=== PATIENT | male | born 1970 | race Caucasian/White ===

== ENCOUNTER 2017-11-03 19:34 | Emergency (ER) | payer OTHER ==
[2017-11-03] MEDS ORDERED: NS 0.9% 1000 ML* 1,000 ML IV ONE (21:08)
[2017-11-03 21:43] LABS: ABS Basophils 0 10^3/ul (0-0.2); ABS Eosinophils 0 10^3/ul (0-0.6); ABS Monocytes 0.7 10^3/ul (0-0.8); ABS Neutrophils 8.3 10^3/ul (1.5-7.7); ABS Nucleated RBC 0 10^3/ul; Eosinophil % 0.4 % (0-6); Hematocrit 39 % (42-52); Hemoglobin 13.8 g/dl (14.0-18.0); Lymphocyte % 10.1 % (25-47); Mean Corpuscular HGB Conc 35 g/dl (31-36); Mean Corpuscular Hemoglobin 31 pg (27-31); Mean Corpuscular Volume 88 fL (80-94); Mean Platelet Volume 9 um3 (7.4-10.4); Nucleated Red Blood Cells % 0; Platelet Count 182 10^3/ul (150-450); Red Blood Count 4.48 10^6/ul (4.0-5.4); Red Cell Distribution Width 13 % (10.5-15); White Blood Count 10.1 10^3/ul (3.5-10.8)
--- NOTE | 2017-11-03 21:55 | RAD ---
Indication: Shortness of breath. Single frontal view of the chest performed at 2125 hours was reviewed. No prior study is available for comparison. No mediastinal shift is noted. Heart is of normal size and configuration. Lung fontenot appear clear. IMPRESSION: NO ACTIVE CARDIOPULMONARY DISEASE IS NOTED.
[2017-11-03 22:00] LABS: EGFR Non-African American 76.2 (>60)
[2017-11-03 22:26] LABS: Urine Appearance Clear; Urine Blood Negative (Negative); Urine Color Yellow; Urine Ketones Negative (Negative); Urine Protein Negative (Negative); Urine Specific Gravity 1.018 (1.010-1.030); Urine Urobilinogen Negative (Negative)
[2017-11-03] MEDS ORDERED: LORazepam INJ* 2 MG/ML 1 ML VIAL IV PUSH ONE (22:30)
--- NOTE | 2017-11-03 23:04 | ED ---
Jesse Rivera Nilda, scribed for Neo Wolff MD on 11/03/17 at 2054 . Complex/Multi-Sys Presentation - HPI Summary HPI Summary: This patient is a 49 year old M presenting to [facility] with a chief complaint of acute tachycardia at 1500 today (resolved). The patient rates the pain 0/10 in severity. Patient reports fever, flushed in the face, and lightheadedness, but denies pain and chills. Symptoms aggravated and alleviated by nothing. Pt states he had flu 2 weeks ago and was treated with Tamiflu. Medications include Fluoxetine (Tx for depression, recent divorce) and generic Lipitor. - History Of Current Complaint Chief Complaint: EDGeneral Time Seen by Provider: 11/03/17 20:37 Hx Obtained From: Patient Onset/Duration: Sudden Onset, Lasting Hours, Resolved Severity Currently: None Location: Negative Aggravating Factor(s): nothing Alleviating Factor(s): nothing Associated Signs And Symptoms: Positive: Other - fever, tachycardia, flushed in the face, and lightheadedness, but denies pain and chills. Related History: Recent Illness - flu 2 weeks ago - Allergies/Home Medications Allergies/Adverse Reactions: Allergies Allergy/AdvReac Type Severity Reaction Status Date / Time Penicillins Allergy Rash Verified 11/03/17 20:40 Home Medications: Home Medications Atorvastatin* [Lipitor*] 10 mg PO DAILY 11/03/17 [History Confirmed 11/03/17] FLUoxetine CAP* [PROzac CAP*] 20 mg PO DAILY 11/03/17 [History Confirmed ] PMH/Surg Hx/FS Hx/Imm Hx Sensory History: Denies: Hx Legally Blind EENT History: Denies: Hx Deafness Psychiatric History: Reports: Hx Depression Infectious Disease History: No Infectious Disease History: Denies: Traveled Outside the [place] in Last 30 Days - Family History Known Family History: Positive: Hypertension - Social History Occupation: Employed Full-time Alcohol Use: Weekly Substance Use Type: Reports: None Smoking Status (MU): Never Smoked Tobacco Review of Systems Positive: Fever. Negative: Chills Positive: Other - tachycardia (resolved) Positive: Other - negative pain Positive: Other - "flushed in the face" Neurological: Other - lightheaded All Other Systems Reviewed And Are Negative: Yes Physical Exam - Summary Physical Exam Summary: VITAL SIGNS: Reviewed. GENERAL: Patient is a well-developed and nourished male who is lying comfortable in the stretcher. Patient is not in any acute respiratory distress. HEAD AND FACE: No signs of trauma. No ecchymosis, hematomas or skull depressions. No sinus tenderness. EYES: PERRLA, EOMI x 2, No injected conjunctiva, no nystagmus. EARS: Hearing grossly intact. Ear canals and tympanic membranes are within normal limits. MOUTH: Oropharynx within normal limits. NECK: Supple, trachea is midline, no adenopathy, no JVD, no carotid bruit, no c- spine tenderness, neck with full ROM. CHEST: Symmetric, no tenderness at palpation LUNGS: Clear to auscultation bilaterally. No wheezing or crackles. CVS: Regular rate and rhythm, S1 and S2 present, no murmurs or gallops appreciated. ABDOMEN: Soft, non-tender. No signs of distention. No rebound no guarding, and no masses palpated. Bowel sounds are normal. EXTREMITIES: FROM in all major joints, no edema, no cyanosis or clubbing. NEURO: Alert and oriented x 3. No acute neurological deficits. Speech is normal and follows commands. SKIN: Dry and warm Triage Information Reviewed: Yes Vital Signs On Initial Exam: Initial Vitals Temp Pulse Resp BP Pulse Ox 98.4 F 83 16 143/69 100 11/03/17 19:48 11/03/17 19:48 11/03/17 19:48 11/03/17 19:48 11/03/17 19:48 Vital Signs Reviewed: Yes Diagnostics - Vital Signs Vital Signs Temp Pulse Resp BP Pulse Ox 11/03/17 19:48 98.4 F 83 16 143/69 100 - Laboratory Result Diagrams: 11/03/17 21:29 11/03/17 21:29 Lab Statement: Any lab studies that have been ordered have been reviewed, and results considered in the medical decision making process. - Radiology CXR Radiology Interpretation Completed By: Radiologist - CXR reveals no active cardiopulmonary disease is noted. Dr. Wolff has reviewed this report. - EKG 1950 Cardiac Rate: NL EKG Rhythm: Sinus Rhythm - 84 bpm EKG Interpretation: Normal axis. Normal interval. No ischemic changes Re-Evaluation - Re-Evaluation First Eval Re-Evaluation Time: 22:16 Comment: Pt is very anxious because cat 2 days ago. Pt thinks he will . Pt was reassured that labs and imaging were normal. Pt will be D/C home will follow up with PCP. Complex Multi-Symp Course/Dx Course Of Treatment: Pt is a 47 y/o M with Hx of HTN and Depression. Pt going through divorce. He came because he was flushed at work. Pt on exam is anxious. Blood and EKG are normal. Pt is concerned because his cat at home. Pt symptoms are most likely secondary to anxiety. Pt will be D/C, prescribed Xanax and advised to f/u with PCP. - Diagnoses Provider Diagnoses: Anxiety Discharge - Discharge Plan Condition: Stable Disposition: HOME Prescriptions: ALPRAZolam TAB* [Xanax TAB*] 0.5 mg PO BID PRN #10 tab MDD 2 PRN Reason: Anxiety ALPRAZolam TAB* [Xanax TAB*] 0.5 mg PO BID PRN #10 tab MDD 2 PRN Reason: Anxiety Patient Education Materials: Anxiety (ED) Referrals: Marycarmen Snyder MD [Primary Care Provider] - 3 Days Additional Instructions: RETURN TO THE EMERGENCY DEPARTMENT FOR CHANGING OR WORSENING SYMPTOMS. The documentation as recorded by the Jesse wu Nilda accurately reflects the service I personally performed and the decisions made by me, Neo Wolff MD.
[2017-11-04 00:24] VITALS: BP 132/78
== END 2017-11-04 00:22 | disposition home or self-care (01) ==
LOC: ED 19:34
DX: R50.9 Fever, unspecified (principal); R00.0 Tachycardia, unspecified; R42 Dizziness and giddiness; F41.9 Anxiety disorder, unspecified
CPT/HCPCS: 36415; 71045; 80053; 81003; 83735; 85025; 86140; 87502; 93005; 96360; 99283

== ENCOUNTER 2019-07-18 11:51 | Emergency (ER) | payer OTHER ==
--- OUTSIDE RECORDS SUMMARY | 2019-07-18 11:57 | XMS REPORT | Summary of Care ---
:1970 Author Organization [facility] Address [address] [place] [address] Care Team Providers Name Role Phone Marycarmen Snyder Primary Care Provider Reason for Visit Reason Comments Shoulder Pain Encounter Details Date Type Department Care Team Description 06/07/2019 Office Visit [facility] - Patt Arnett, Chronic right [place] Physical [facility] shoulder pain Therapy [address] (Primary Dx) [address] [place] [address] [address] [phone] [phone] Allergies Active Allergy Reactions Severity Noted Date Comments Penicillins Rash 11/29/2011 documented as of this encounter (statuses as of 06/07/2019) Medications Medication Sig Dispensed Refills Start Date End Date Status Multiple Take by mouth. 0 Active Vitamins-Minerals (MULTIVITAMIN MEN) Oral Tab [place]-3 Fatty Acids Take by mouth. 0 Active (FISH OIL) 1000 MG Oral Cap doxycycline Take 100 mg by 20 Tab 0 06/20/2018 Active (VIBRAMYCIN) 100 MG mouth TWICE Oral Tab DAILY. fluoxetine (PROZAC) 20 Take 1 Cap by 90 Cap 1 11/27/2018 Active MG Oral Cap mouth DAILY. atorvastatin (LIPITOR) take 1 tablet by 30 Tab 5 01/24/2019 Active 20 MG Oral mouth once daily TabIndications: Dyslipidemia atorvastatin (LIPITOR) Take 1 Tab by 90 Tab 0 02/26/2019 Active 40 MG Oral Tab mouth DAILY. documented as of this encounter (statuses as of 06/07/2019) Active Problems Problem Noted Date Anxiety and depression 01/20/2018 Depression 01/28/2017 Sprain of medial collateral ligament of right knee 09/18/2015 Right knee pain 09/16/2015 Dyslipidemia 12/23/2011 BMI 30.0-30.9,adult 12/23/2011 Overview: Weight loss through diet/exercise 2011 documented as of this encounter (statuses as of 06/07/2019) Immunizations Name Administration Dates Next Due Influenza (IM) Preservative Free 08/30/2017, 07/12/2011 Influenza (IM) W/Pres 08/13/2016 Influenza Vaccine Split 05/17/2018 TDAP Vaccine 11/29/2011 documented as of this encounter Social History Tobacco Use Types Packs/Day Years Used Date Never Smoker Smokeless Tobacco: Never Used Alcohol Use Drinks/Week oz/Week Comments Yes 4-6 Standard drinks or equivalent 4.0 - 6.0 Socially Sex Assigned at Date Recorded Not on file Job Start Date Occupation Industry Not on file Not on file Not on file Travel History Travel Start Travel End No recent travel history available. documented as of this encounter Last Filed Vital Signs Not on filedocumented in this encounter Progress Notes Patt Arnett, PT - 06/07/2019 8:30 AM EDT [facility] Treatment Note Outpatient Physical Therapy [facility] [address] [place] [phone] Treatment Number: 5 Referring Physician: Marycarmen Snyder Primary Diagnosis: ICD-9-CM ICD-10-CM 1. Chronic right shoulder pain 719.41 M25.511 338.29 G89.29 Time In: 08 Time Out: 0905 Total Session Minutes: 35 Pain at Start of Care: 10/08 Pain at End of Care: 09/07 Subjective Comments: Doing ok, improved mobility, back to hockey Interventions: Therapeutic Exercises (31890) Patient Education/Home Exercise Program: see exercises below Number of Exercises?: 7 Total Minutes (all Therapeutic Exercise): 10 Exercise #1 Exercise Name: open book Reason for Exercise: Flexibility Location/Body Area: Shoulder Sets/Reps: 10x5 sec Exercise #2 Exercise Name: Shoulder abduction slide ont able Reason for Exercise: Joint Mobility Location/Body Area: Shoulder Sets/Reps: 10 Exercise #3 Exercise Name: Door way pectoral strethc Reason for Exercise: Flexibility Location/Body Area: Shoulder Sets/Reps: 60 sec Exercise #4 Exercise Name: Foam roller pecs and lats Reason for Exercise: Flexibility Location/Body Area: Shoulder Exercise #5 Exercise Name: Shoulder extension, ER with green band Reason for Exercise: Strengthening Location/Body Area: Shoulder Sets/Reps: 20x Exercise #6 Exercise Name: UBE Reason for Exercise: Muscle Performance Location/Body Area: Shoulder Sets/Reps: retro 3 min Exercise #7 Exercise Name: D2 flexion Reason for Exercise: Strengthening Location/Body Area: Shoulder Sets/Reps: 15x green Manual Therapy (89442) Soft Tissue Mobilization: Manual Tissue Mobilization Soft Tissue Mobilization Details: TrP, MFR R upper trap Instrument-Assisted Soft Tissue Mobilization: Cupping, Hawkgrips IASTM Details: Cupping to R upper trap and posterior deltoid, IASTM to pectorals PROM: R shoulder GHJ-all planes of motion PROM Details: inferior and posterior capsular restrictions Total Minutes (All Manual Therapy): 25 Assessment: Patient demonstrates limited AROM in all planes, greatest capsular restrictions into external rotation combined with abduction. Pectorals and lats remain short and hypertonic. Patient also reports ongoing difficulty in reaching lifting pushing, weight lifting. Skilled Physical Therapy services are required to address ongoing functional and objective limitations/ impairments including decreased GHJ mobility and scapular strength. Plan for Next Visit: Progress mobilizations as tolerated. Total UNTIMED Code Treatment Minutes: Total TIMED Code Treatment Minutes: 35 Total Treatment Minutes: 35 Author: Patt Arnett PT 06/07/2019 09:12 documented in this encounter Plan of Treatment Date Type Specialty Care Team Description 06/13/2019 Office Visit Physical Therapy Patt Arnett, PT [address] [place] [address] [phone] 06/20/2019 Office Visit Physical Therapy Patt Arnett, PT [address] [place] [address] [phone] Health Maintenance Due Date Last Done Comments DEPRESSION SCREENING 1981 INFLUENZA VACCINE (#1) 2019 05/17/2018, 08/30/2017, 08/13/2016, Additional history exists DIABETES SCREENING 02/10/2020 02/09/2019, 10/02/2018, 02/21/2018, Additional history exists LIPID DISORDER SCREENING 02/27/2024 02/26/2019, 02/09/2019, 10/02/2018, Additional history exists HPV IMMUNIZATION SERIES Aged Out No longer eligible based on patient's age to complete this topic MENINGOCOCCAL VACCINE IMM Aged Out No longer eligible based on patient's age to complete this topic PNEUMOCOCCAL 0-64 YRS Aged Out No longer eligible based on patient's age to complete this topic documented as of this encounter Goals Goal Patient Goal Associated Recent Patient-Stated? Author Type Problems Progress Depression Depression No beverly Snyder (PHQ-9) Marycarmen total score < 5 Note: This is an individualized treatment (depression) goal for Kun Barron: Displayed above is your goal for a depression screening (PHQ-9) score that would indicate good control of your depression. Keep a regular sleep schedule Lifestyle No Marycarmen Snyder MD Note: This is an individualized lifestyle goal for Kun Barron: Please maintain a regular sleep schedule. This may help with some symptoms of depression. Take all prescribed medications as Self-management No Marycarmen Snyder MD directed Note: This is an individualized self-management goal for Kun Barron: Please take all prescribed medications as directed. 1. Do not skip doses. If you cannot afford your medications, talk with your doctor. 2. Use a pill reminder system such as a pill box if needed. Your pharmacist can help you with this. 3. Contact your Pharmacy 5 days before your medication runs out. If you cannot take your medications for any reasons, talk with your doctor. 4. Please bring all of your medication bottles and inhalers (or a list of all your medications/inhalers) with you to every visit. Potential barriers to meeting all of your care plan goals will continue to be addressed on an ongoing basis. documented as of this encounter Results Not on filedocumented in this encounter Visit Diagnoses Diagnosis Chronic right shoulder pain - Primary Pain in joint, shoulder region documented in this encounter Insurance Payer Benefit Plan / Subscriber ID Effective Dates Phone Address Type Group [employer] COMMERCIAL CIGNA [facility] xxxxxxxxxxx 2018-Present Cigna Guarantor Name Account Type Relation to Date of Phone Billing Patient Address Kun Barron Personal/Family 1970 [address] (Home) [facility] [phone] [place], [place] (Work) [id number] documented as of this encounter
--- OUTSIDE RECORDS SUMMARY | 2019-07-18 11:57 | XMS REPORT | Summary of Care ---
:1970 Author Organization [facility] Address [address] [place] [address] Care Team Providers Name Role Phone Marycarmen Snyder Primary Care Provider Reason for Visit Reason Comments Shoulder Pain right Encounter Details Date Type Department Care Team Description 06/20/2019 Office Visit [facility] - Patt Arnett, Jeyson right [place] [facility] shoulder pain Therapy [address] (Primary Dx) [address] [place] [address] [address] [phone] [phone] Allergies Active Allergy Reactions Severity Noted Date Comments Penicillins Rash 11/29/2011 documented as of this encounter (statuses as of 06/20/2019) Medications Medication Sig Dispensed Refills Start Date End Date Status Multiple Take by mouth. 0 Active Vitamins-Minerals (MULTIVITAMIN MEN) Oral Tab [place]-3 Fatty Acids Take by mouth. 0 Active (FISH OIL) 1000 MG Oral Cap doxycycline Take 100 mg by 20 Tab 0 06/20/2018 Active (VIBRAMYCIN) 100 MG mouth TWICE Oral Tab DAILY. atorvastatin (LIPITOR) take 1 tablet by 30 Tab 5 01/24/2019 Active 20 MG Oral mouth once daily TabIndications: Dyslipidemia atorvastatin (LIPITOR) TAKE 1 TABLET BY 90 Tab 1 06/11/2019 Active 40 MG Oral Tab MOUTH DAILY fluoxetine (PROZAC) 20 TAKE 1 CAPSULE BY 90 Cap 1 06/11/2019 Active MG Oral Cap MOUTH ONCE DAILY documented as of this encounter (statuses as of 06/20/2019) Active Problems Problem Noted Date Anxiety and depression 01/20/2018 Depression 01/28/2017 Sprain of medial collateral ligament of right knee 09/18/2015 Right knee pain 09/16/2015 Dyslipidemia 12/23/2011 BMI 30.0-30.9,adult 12/23/2011 Overview: Weight loss through diet/exercise 2011 documented as of this encounter (statuses as of 06/20/2019) Immunizations Name Administration Dates Next Due Influenza [...] encounter Progress Notes Patt Arnett, PT - 06/20/2019 8:30 AM EDT [facility] Treatment Note Outpatient Physical Therapy [facility] [address] [place] [phone] Treatment Number: 6 Referring Physician: Marycarmen Snyder Primary Diagnosis: ICD-9-CM ICD-10-CM 1. Chronic right shoulder pain 719.41 M25.511 338.29 G89.29 Plan of Care Expiration Date: Time In: 829 Time Out: 899 Total Session Minutes: 30 Pain at Start of Care: 0/10 Pain at End of Care: 110 Subjective Comments: Has not been stretching much himself. Despite that his shoulder is pain free. Interventions: Therapeutic Exercises (61532) Patient Education/Home Exercise Program: see exercises below Number of Exercises?: 7 Total Minutes (all Therapeutic Exercise): 10 Exercise #1 Exercise Name: open book Reason for Exercise: Flexibility Location/Body Area: Shoulder Sets/Reps: 10x5 sec Exercise #3 Exercise Name: Door way pectoral strethc Reason for Exercise: Flexibility Location/Body Area: Shoulder Sets/Reps: 60 sec Exercise #4 Exercise Name: Foam roller pecs and lats Reason for Exercise: Flexibility Location/Body Area: Shoulder Exercise #6 Exercise Name: UBE Reason for Exercise: Muscle Performance Location/Body Area: Shoulder Sets/Reps: retro 3 min Exercise #7 Exercise Name: towel IR stretch Reason for Exercise: Flexibility Location/Body Area: Shoulder Sets/Reps: 5 x 5 sec Manual Therapy (68259) Soft Tissue Mobilization: Manual Tissue Mobilization Soft Tissue Mobilization Details: TrP, MFR R upper trap Instrument-Assisted Soft Tissue Mobilization: Cupping, Hawkgrips IASTM Details: Cupping to R upper trap and posterior deltoid, IASTM to pectorals PROM: R shoulder GHJ-all planes of motion PROM Details: inferior and posterior capsular restrictions Total Minutes (All Manual Therapy): 20 Assessment: Patient demonstrates improved flexion, abduction and ER. Remains restricted into IR andcombined ER/flexion/abd. Patient also reports ongoing difficulty in throwing motion. Skilled Physical Therapy services are required to address ongoing functional and objective limitations/impairmentsincluding decreased GHJ mobility. Plan for Next Visit: FU in 2 weeks consider dc Total UNTIMED Code Treatment Minutes: Total TIMED Code Treatment Minutes: 30 Total Treatment Minutes: 30 Author: Patt Arnett, PT 06/20/2019 11:03 documented in this encounter Plan of Treatment Date Type Specialty Care Team Description 07/05/2019 Office Visit Physical Therapy Patt Arnett, PT [address] [id number] [phone] Health Maintenance Due Date Last Done Comments DEPRESSION SCREENING 1981 INFLUENZA VACCINE (#1) 2019 05/17/2018, 08/30/2017, 08/13/2016, Additional history exists DIABETES SCREENING 02/10/2020 02/09/2019, 10/02/2018, 02/21/2018, Additional history exists LIPID DISORDER SCREENING 06/11/2024 06/11/2019, 02/09/2019, 10/02/2018, Additional history exists HPV IMMUNIZATION [...] Progress Depression Depression No beverly Snyder (PHQ-9) Marycarmen, total score < 5 Note: This is [...] Phone Address Type Group [employer] COMMERCIAL C[employer]NA [facility] xxxxxxxxxxx 2018-Present Cigna Guarantor Name Account Type Relation to Date of Phone Billing Patient Address Kun Barron Personal/Family 1970 [address] (Home) [facility] [phone] [place], [place] (Work) [phone] documented as of this encounter
--- OUTSIDE RECORDS SUMMARY | 2019-07-18 11:57 | XMS REPORT | Summary of Care ---
:1970 Author Organization [facility] Address [address] [address] Care Team Providers Name Role Phone Marycarmen Snyder Primary Care Provider Reason for Visit Reason Comments Shoulder Pain right Encounter Details Date Type Department Care Team Description 07/05/2019 Office Visit [facility] - Patt Arnett, Jeyson right [place] [facility] shoulder pain Therapy [address] (Primary Dx) 10 [place] [address] [address] [phone] [phone] Allergies Active Allergy Reactions Severity Noted Date Comments Penicillins Rash 11/29/2011 documented as of this encounter (statuses as of 07/05/2019) Medications Medication Sig Dispensed Refills Start Date End Date Status Multiple Take by mouth. 0 Active Vitamins-Minerals (MULTIVITAMIN MEN) Oral Tab [place]-3 Fatty Acids Take by mouth. 0 Active [...] as of this encounter (statuses as of 07/05/2019) Active Problems Problem Noted Date Anxiety and depression 01/20/2018 Depression 01/28/2017 Sprain of medial collateral ligament of right knee 09/18/2015 Right knee pain 09/16/2015 Dyslipidemia 12/23/2011 BMI 30.0-30.9,adult 12/23/2011 Overview: Weight loss through diet/exercise 2011 documented as of this encounter (statuses as of 07/05/2019) Immunizations Name Administration Dates Next Due Influenza [...] encounter Progress Notes Patt Arnett, PT - 07/05/2019 8:30 AM EST [facility] Treatment Note Outpatient Physical [facility] [address] [place] [phone] Treatment Number: 7 Referring Physician: Marycarmen Snyder Primary Diagnosis: ICD-9-CM ICD-10-CM 1. Chronic right shoulder pain 719.41 M25.511 338.29 G89.29 Plan of Care Expiration Date: 07/31/19 Time In: 829 Time Out: 904 Total Session Minutes: 35 Pain at Start of Care: 0/10 Pain at End of Care: 0/10 Subjective Comments: Has not done any stretching or band exercises, has played hockey 2x. Interventions: Therapeutic Exercises (22678) Patient Education/Home Exercise Program: see exercises below [...] Sets/Reps: 5 x 5 sec Manual Therapy (37035) Soft Tissue Mobilization: Manual Tissue Mobilization Soft Tissue Mobilization Details: TrP, MFR R upper trap Instrument-Assisted Soft Tissue Mobilization: Cupping, Hawkgrips IASTM Details: Cupping to R upper trap and posterior deltoid, IASTM to pectorals PROM: R shoulder GHJ-all planes of motion PROM Details: inferior and posterior capsular restrictions Total Minutes (All Manual Therapy): 25 Assessment: Patient demonstrates flexion to 160, abduction 180, ER to 90, Ir to L4 on R, L is 170 into flexion, 90 ER 180 abduction, IR to T8 . Patient also reports ongoing difficulty in reaching over head, lifting heavy weights, hockey. Skilled Physical Therapy services are required to address ongoing functional and objective limitations/impairments including decreased R GHJ mobility and scapularstrength. Plan for Next Visit: He feels independent in HEP and will continue with this, calling in the next weeks if he feels he is not doing well. Total UNTIMED Code Treatment Minutes: Total TIMED Code Treatment Minutes: 35 Total Treatment Minutes: 35 Author: Patt rAnett, PT 07/05/2019 09:10 documented in this encounter Plan of Treatment Health Maintenance Due Date Last Done Comments [...] Phone Address Type Group [employer] COMMERCIAL C[employer]NA [facility] xxxxxxxxxxx 2018-Present Cigna Guarantor Name Account Type Relation to Date of Phone Billing Patient Address Kun Barron Personal/Family 1970 [address] (Home) [facility] [phone] [place], [place] (Work) [phone] documented as of this encounter
--- OUTSIDE RECORDS SUMMARY | 2019-07-18 11:57 | XMS REPORT | Summary of Care ---
:1970 Author Organization [facility] Address [address] [place] [address] Care Team Providers Name Role Phone Marycarmen Snyder MD Primary Care Provider Reason for Visit Reason Comments Shoulder Pain right Encounter Details Date Type Department Care Team Description 05/22/2019 Office Visit [facility] - Patt Arnett, Jeyson right [place] [facility] shoulder pain Therapy [address] (Primary Dx) [address] [place] [address] [address] [phone] [phone] Allergies Active Allergy Reactions Severity Noted Date Comments Penicillins Rash 11/29/2011 documented as of this encounter (statuses as of 05/22/2019) Medications Medication Sig Dispensed Refills Start Date End Date Status Multiple Take by mouth. 0 Active Vitamins-Minerals (MULTIVITAMIN MEN) Oral Tab [place]-3 Fatty Acids Take by mouth. 0 Active [...] as of this encounter (statuses as of 05/22/2019) Active Problems Problem Noted Date Anxiety and depression 01/20/2018 Depression 01/28/2017 Sprain of medial collateral ligament of right knee 09/18/2015 Right knee pain 09/16/2015 Dyslipidemia 12/23/2011 BMI 30.0-30.9,adult 12/23/2011 Overview: Weight loss through diet/exercise 2011 documented as of this encounter (statuses as of 05/22/2019) Immunizations Name Administration Dates Next Due Influenza [...] encounter Progress Notes Patt Arnett, PT - 05/22/2019 8:30 AM EDT [facility] Treatment Note Outpatient Physical Therapy [facility] [address] [place] [id number] Treatment Number: 4 Referring Physician: Jd Murillo Primary Diagnosis: ICD-9-CM ICD-10-CM 1. Chronic right shoulder pain 719.41 M25.511 338.29 G89.29 Time In: 824 Time Out: 0915 Total Session Minutes: 50 Pain at Start of Care: 210 Pain at End of Care: 09/07 Subjective Comments: Stiff, worked strengthening hard again. Interventions: Therapeutic Exercises (51762) Patient Education/Home Exercise Program: see exercises below Number of Exercises?: 7 Total Minutes (all Therapeutic Exercise): 25 Exercise #1 Exercise Name: Table flexion stretch Reason for Exercise: Flexibility Location/Body Area: [...] Area: Shoulder Sets/Reps: 15x green Manual Therapy (51533) Soft Tissue Mobilization: Manual Tissue Mobilization Soft Tissue Mobilization Details: TrP, MFR R upper trap Instrument-Assisted Soft Tissue Mobilization: Cupping, Hawkgrips IASTM Details: Cupping to R upper trap and posterior deltoid, IASTM to pectorals PROM: R shoulder GHJ-all planes of motion PROM Details: inferior and posterior capsular restrictions Total Minutes (All Manual Therapy): 25 Assessment: Patient demonstrates hypomobility anterior and inferior capsule limiting flexion and Erthe greatest, he is encouraged to stretch more. Patient also reports ongoing difficulty in reachinglaterally, hockey, weight lifting. Skilled Physical Therapy services are required to address ongoing functional and objective limitations/impairments including decreased GHJ mobility. Plan for Next Visit: Progress mobilizations as tolerated. Total UNTIMED Code Treatment Minutes: Total TIMED Code Treatment Minutes: 50 Total Treatment Minutes: 50 Author: Patt Arnett, PT 05/22/2019 09:05 documented in this encounter Plan of Treatment [...] Phone Address Type Group [employer] [facility] xxxxxxxxxxx 2018-Present [employer] Guarant[employer] Name Account Type Relation to Date of Phone Billing Patient Address Kun Barron Personal/Family 1970 [address] (Home) [place] [phone] [place], [place] (Work) [id number] documented as of this encounter
[2019-07-18 13:17] VITALS: BP 128/75
[2019-07-18] MEDS ORDERED: Albuterol/Ipratropium NEB.SOL* Albuterol 2.5 MG/Ipratropium 0.5 MG 3 ML INH ONE (13:46)
--- NOTE | 2019-07-18 13:49 | UC ---
Respiratory Complaint HPI - HPI Summary HPI Summary: 49-year-old male who has had cough and cold symptoms over the past 3-4 days. Has a history of pneumonia approximate 2 years ago. He is a nonsmoker. He states he has a productive cough of white sputum and he feels like this is the same as when he had pneumonia. Strube asthma. - History of Current Complaint Chief Complaint: UCGeneralIllness Stated Complaint: COUGH Time Seen by Provider: 07/18/19 13:42 Hx Obtained From: Patient Onset/Duration: Gradual Onset Timing: Intermittent Episodes Severity Initially: Mild Severity Currently: Mild Pain Intensity: 0 Character: Cough: Productive - Productive cough of white sputum. Aggravating Factors: Nothing Alleviating Factors: Nothing Associated Signs And Symptoms: Positive: URI, Nasal Congestion - Allergies/Home Medications Allergies/Adverse Reactions: Allergies Allergy/AdvReac Type Severity Reaction Status Date / Time Penicillins Allergy Rash Verified 07/18/19 13:11 PMH/Surg Hx/FS Hx/Imm Hx Previously Healthy: Yes - Surgical History Surgical History: Yes Surgery Procedure, Year, and Place: appendectomy. inguinal hernia repair - Family History Known Family History: Positive: Hypertension - Social History Alcohol Use: Occasionally Substance Use Type: None Smoking Status (MU): Never Smoked Tobacco Review of Systems All Other Systems Reviewed And Are Negative: Yes ENT: Positive: Nasal Discharge, Sinus Congestion Respiratory: Positive: Cough - Productive cough of white sputum. Patient states his chest feels like it did when he had pneumonia 2 years ago. Is Patient Immunocompromised?: No Physical Exam Triage Information Reviewed: Yes Appearance: Well-Appearing, No Pain Distress, Well-Nourished Vital Signs: Initial Vital Signs Temp 99 F 07/18/19 13:13 Pulse 73 07/18/19 13:13 Resp 16 07/18/19 13:13 BP 128/75 07/18/19 13:13 Pulse Ox 99 07/18/19 13:13 Vital Signs Reviewed: Yes Eyes: Positive: Conjunctiva Clear ENT: Positive: Hearing grossly normal, Pharynx normal, TMs normal, Uvula midline Neck: Positive: Supple, Nontender, No Lymphadenopathy Respiratory: Positive: No respiratory distress, No accessory muscle use, Wheezing - Very mild wheezing with forced expiration. Cardiovascular: Positive: RRR, No Murmur, Pulses Normal, Brisk Capillary Refill Musculoskeletal Exam: Normal Neurological Exam: Normal Psychological Exam: Normal Skin Exam: Normal Respiratory Course/Dx - Course Course Of Treatment: DuoNeb treatment: Patient states he doesn't feel like he had much improvement in his aeration however listening to his lungs he has very little wheeze present and he has better air movement with no consolidation. Chest x-ray:FINDINGS: CARDIOMEDIASTINAL SILHOUETTE: The cardiomediastinal silhouette is normal. IRWIN: The irwin are normal. PLEURA: The costophrenic angles are sharp. No pleural abnormalities are noted. LUNG PARENCHYMA: The lungs are clear. ABDOMEN: The upper abdomen is clear. There is no subphrenic gas. BONES AND SOFT TISSUES: No bone or soft tissue abnormalities are noted. OTHER: None. IMPRESSION: NO ACTIVE CARDIOPULMONARY DISEASE. I'm going to give him an albuterol inhaler to do to puffs every 4-6 hours as needed for tight cough or wheezing and definite follow up with his primary care provider if no improvement in 4 or 5 days. - Differential Dx/Diagnosis Provider Diagnosis: Bronchitis Discharge ED - Sign-Out/Discharge Documenting (check all that apply): Patient Departure All imaging exams completed and their final reports reviewed: Yes - Discharge Plan Condition: Good Disposition: HOME Prescriptions: Albuterol HFA INHALER* [Ventolin HFA Inhaler*] 2 puff INH Q4H PRN 5 Days #1 mdi PRN Reason: Wheezing Patient Education Materials: Acute Bronchitis (ED) Referrals: Marycarmen Snyder MD [Primary Care Provider] - Additional Instructions: Increase fluids. Use your albuterol inhaler 2 puffs every 4-6 hours as needed for wheezing or tight cough. Definite follow-up with your primary care provider if you start running a fever or have any worsening symptoms over the next 4-5 days. - Billing Disposition and Condition Condition: GOOD Disposition: Home - Attestation Statements Provider Attestation: Per institutional requirements, I have reviewed the chart, however, I was not consulted specifically or made aware of this patient by the midlevel provider. I did not personally evaluate, interact with , or disposition this patient.
== END 2019-07-18 14:47 | disposition home or self-care (01) ==
LOC: UCEAST 11:51
DX: J40 Bronchitis, not specified as acute or chronic (principal); R09.89 Other specified symptoms and signs involving the circulatory and respiratory systems; Z87.01 Personal history of pneumonia (recurrent); Z88.0 Allergy status to penicillin; R09.81 Nasal congestion
CPT/HCPCS: 71046; 99212; A9270-GY; G0463